=== PATIENT | male | born 1975 | race Caucasian/White ===

== ENCOUNTER 2023-09-21 18:39 | Emergency (ER) | payer OTHER, BC ==
[~2023-09-21] VITALS: Ht 172.7 cm; Wt 86.6 kg
[~2023-09-21 18:39] MED LIST: HYDR1TAB94 PO; OXYACE5T PO; PROM25 PO; TAMS.4ER PO
[2023-09-21 22:00] VITALS: BP 165/94
== END 2023-09-21 22:08 | disposition home or self-care (01) ==
LOC: ER 18:39
DX: S76.012A Strain of muscle, fascia and tendon of left hip, initial encounter (principal); X58.XXXA Exposure to other specified factors, initial encounter
CPT/HCPCS: 73502; 99283-25